=== PATIENT | female | born 1965 | race Caucasian/White ===

== ENCOUNTER → 2017-10-19 | Outpatient (CLI) | payer BC ==
--- NOTE | 2017-10-20 10:53 | MM ---
Reason for exam: screening (asymptomatic). Last mammogram was performed 1 year and 2 months ago. Physical Findings: A clinical breast exam by your physician is recommended on an annual basis and results should be correlated with mammographic findings. MG Screening Mammo w CAD Bilateral CC and MLO view(s) were taken. Prior study comparison: August 24, 2016, bilateral MG screening mammo w CAD. August 19, 2015, bilateral MG screening mammo w CAD. The breast tissue is heterogeneously dense. This may lower the sensitivity of mammography. There is no discrete abnormality. ASSESSMENT: Negative, BI-RAD 1 RECOMMENDATION: Routine screening mammogram of both breasts in 1 year.
== END | disposition home or self-care (01) ==
LOC: RADMAMWWP 15:33
PROVIDERS: ATTEND Internal Medicine Geriatric Medicine
DX: Z12.31 Encounter for screening mammogram for malignant neoplasm of breast (principal)
CPT/HCPCS: 77067

== ENCOUNTER → 2020-11-13 | Outpatient (CLI) | payer OTHER ==
--- NOTE | 2020-11-16 12:04 | MM ---
Reason for exam: screening (asymptomatic). Last mammogram was performed 3 years and 1 month ago. Physical Findings: A clinical breast exam by your physician is recommended on an annual basis and results should be correlated with mammographic findings. MG Screening Mammo w CAD Bilateral CC and MLO view(s) were taken. Prior study comparison: August 24, 2016, bilateral MG screening mammo w CAD. August 19, 2015, bilateral MG screening mammo w CAD. August 08, 2014, bilateral MG screening mammo w CAD. The breast tissue is heterogeneously dense. This may lower the sensitivity of mammography. No significant changes when compared with prior studies. ASSESSMENT: Negative, BI-RAD 1 RECOMMENDATION: Routine screening mammogram of both breasts in 1 year.
== END | disposition home or self-care (01) ==
LOC: RADMAMWWP 11:02
PROVIDERS: ATTEND Internal Medicine Geriatric Medicine
DX: Z12.31 Encounter for screening mammogram for malignant neoplasm of breast (principal)
CPT/HCPCS: 77067

== ENCOUNTER → 2022-01-10 | Outpatient (CLI) | payer OTHER ==
--- NOTE | 2022-01-12 10:40 | MM ---
Reason for exam: screening (asymptomatic). Last mammogram was performed 1 year and 2 months ago. Physical Findings: A clinical breast exam by your physician is recommended on an annual basis and results should be correlated with mammographic findings. MG Screening Mammo w CAD Bilateral CC and MLO view(s) were taken. Prior study comparison: November 13, 2020, bilateral MG screening mammo w CAD. October 19, 2017, bilateral MG screening mammo w CAD. There are scattered fibroglandular densities. No significant changes when compared with prior studies. ASSESSMENT: Benign, BI-RAD 2 RECOMMENDATION: Routine screening mammogram of both breasts in 1 year.
== END | disposition home or self-care (01) ==
LOC: RADMAMWWP 07:00
PROVIDERS: ATTEND Internal Medicine Geriatric Medicine
DX: Z12.31 Encounter for screening mammogram for malignant neoplasm of breast (principal)
CPT/HCPCS: 77067

== ENCOUNTER → 2024-01-30 | Outpatient (CLI) | payer OTHER ==
--- NOTE | 2024-02-01 18:59 | MM ---
Reason for Exam: Screening (asymptomatic). Last screening mammogram was performed 12 month(s) ago. Patient History: Menarche at age 14. First Full-Term at age 21. Risk Values: Chayito 5 year model risk: 1.1%. NCI Lifetime model risk: 7.1%. Prior Study Comparison: 11/13/2020 Bilateral Screening Mammogram, [facility]. 01/10/2022 Bilateral Screening Mammogram, [facility]. 01/27/2023 Bilateral MG 3D screening mammo w/cad, [facility]. Tissue Density: There are scattered areas of fibroglandular density. Findings: Analyzed By CAD. There is no suspicious group of microcalcifications or new suspicious mass in either breast. Overall Assessment: Negative, BI-RAD 1 Management: Screening Mammogram of both breasts in 1 year. . Patient should continue monthly self-breast exams. A clinical breast exam by your physician is recommended on an annual basis. This exam should not preclude additional follow-up of suspicious palpable abnormalities. Note on Chayito scores and lifetime risk: 1. A Chayito score greater than 3% is considered moderate risk. If this is the case, consider specialist referral to assess eligibility for a risk reducing agent. 2. If overall lifetime risk for the development of breast cancer is 20% or higher, the patient may qualify for future screening with alternating mammogram and breast MRI. Electronically signed and approved by: Fay Shankar M.D. Radiologist
== END | disposition home or self-care (01) ==
LOC: RADMAMWWP 16:09
PROVIDERS: ATTEND Internal Medicine Geriatric Medicine
DX: Z12.31 Encounter for screening mammogram for malignant neoplasm of breast (principal)
CPT/HCPCS: 77063; 77067

== ENCOUNTER → 2024-03-27 | Outpatient (CLI) | payer OTHER ==
--- NOTE | 2024-03-27 09:58 | US ---
EXAMINATION TYPE: US abdomen limited DATE OF EXAM: 03/27/2024 COMPARISON: NONE CLINICAL INDICATION: Female, 58 years old with history of D72.819 DECREASED WHITE BLOOD CELL COUNT, U NSPECIF; TECHNIQUE: Multiple sonographic images of the abdomen are obtained. FINDINGS: EXAM MEASUREMENTS: Liver Length: 15.0 cm Gallbladder Wall: 0.2 cm CBD: 0.3 cm Spleen: 11.7 cm Right Kidney: 9.7 x 4.7 x 4.4 cm Pancreas: visualized portions wnl, limited by overlying midline bowel gas Liver: wnl Gallbladder: wnl Evidence for sonographic Salgado's sign: no CBD: visualized portions wnl, limited by overlying bowel gas Spleen: wnl Right Kidney: wnl The liver is homogenous without focal lesion. The intrahepatic portion of the IVC and proximal abdom inal aorta are within normal limits. There is no evidence of cholelithiasis. Common bile duct is un remarkable. The visualized portions of the pancreas are homogenous. The spleen is unremarkable. Rig ht kidney is unremarkable without evidence for hydronephrosis, renal lesion, or nephrolithiasis. IMPRESSION: No ultrasound evidence for abnormality.
== END | disposition home or self-care (01) ==
LOC: RADUSWWP 07:46
PROVIDERS: ATTEND Internal Medicine Hematology & Oncology
DX: D72.819 Decreased white blood cell count, unspecified (principal); D69.6 Thrombocytopenia, unspecified
CPT/HCPCS: 76705

== ENCOUNTER → 2025-03-24 | Outpatient (CLI) | payer OTHER ==
--- NOTE | 2025-03-24 16:22 | MM ---
Reason for Exam: Screening (asymptomatic). Last mammogram was performed 1 year(s) and 1 month(s) ago. Patient History: Menarche at age 14. First Full-Term at age 21. Postmenopausal. Risk Values: Chaiyto 5 year model risk: 1.2%. NCI Lifetime model risk: 6.9%. Prior Study Comparison: 01/10/2022 Bilateral Screening Mammogram, [facility]. 01/27/2023 Bilateral MG 3D screening mammo w/cad, [facility]. 01/30/2024 Bilateral MG 3D screening mammo w/cad, [facility]. Tissue Density: There are scattered areas of fibroglandular density. Findings: Analyzed By CAD. There is no suspicious group of microcalcifications or new suspicious mass in either breast. Overall Assessment: Negative, BI-RAD 1 Management: Screening Mammogram of both breasts in 1 year. Patient should continue monthly self-breast exams. A clinical breast exam by your physician is recommended on an annual basis. This exam should not preclude additional follow-up of suspicious palpable abnormalities. Note on Chayito scores and lifetime risk: 1. A Chayito score greater than 3% is considered moderate risk. If this is the case, consider specialist referral to assess eligibility for a risk reducing agent. 2. If overall lifetime risk for the development of breast cancer is 20% or higher, the patient may qualify for future screening with alternating mammogram and breast MRI. [facility], , 03/24/2025 4:19 PM. Electronically signed and approved by: Fay Shankar M.D. Radiologist
== END | disposition home or self-care (01) ==
LOC: RADMAMWWP 09:01
PROVIDERS: ATTEND Internal Medicine Geriatric Medicine
DX: Z12.31 Encounter for screening mammogram for malignant neoplasm of breast (principal); R92.323 Mammographic fibroglandular density, bilateral breasts; Z78.0 Asymptomatic menopausal state
CPT/HCPCS: 77063; 77067